=== PATIENT | female | born 2000 | race Caucasian/White ===

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

== ENCOUNTER 2022-06-29 23:22 | Emergency (ER) | payer OTHER ==
[2022-06-30] MEDS ORDERED: Ibuprofen 800 MG TAB ONE (00:31)
== END 2022-06-30 01:38 | disposition home or self-care (01) ==
LOC: BURERS 23:22
DX: S53.402A Unspecified sprain of left elbow, initial encounter (principal); S73.101A Unspecified sprain of right hip, initial encounter; V43.52XA Car driver injured in collision with other type car in traffic accident, initial encounter